=== PATIENT | female | born 1965 | race Caucasian/White ===

== ENCOUNTER 2016-10-28 18:05 | Emergency (ER) | payer MEDICARE, OTHER ==
[2016-10-28 22:59] LABS: ASCORBIC ACID (UR NOT ORDER) NEG (NEG); BILIRUBIN, URINE NEGATIVE (NEG); ER URINALYSIS TAT 0 Hrs 19 Mins; KETONE, URINE NEGATIVE (NEG); LEUKOCYTE ESTERASE(NOT OR MOD (NEG); NITRITE (URINE) NEG (NEG); WBC (NOT ORDERED) (RFLEX) 42 (0-5)
[2016-10-28 23:19] LABS: BASOPHILS 0.2 %; BASOPHILS ABSOLUTE 0.01 10/3/uL (0.0-0.16); EOSINOPHILS 1.9 %; ER CBC TAT 0 Hrs 07 Mins; HEMATOCRIT 36.9 % (36.0-48.0); HEMOGLOBIN 12.5 g/dL (12.0-16.0); IMMATURE GRANULOCYTES 0.2 %; IMMATURE GRANULOCYTES ABSOLUTE 0.01 10/3/uL (0.0-0.11); LYMPHOCYTES 47.9 %; LYMPHOCYTES ABSOLUTE 2.49 10/3/uL (0.67-4.30); MEAN CORPUS HGB CONC 33.9 g/dL (32.0-36.0); MEAN CORPUSCULAR HEMOGLOB 31.5 pg (26.0-34.0); MEAN CORPUSCULAR VOLUME 92.9 fL (80-100); MEAN PLATELET VOLUME 9.5 fL (9.2-13.0); MONOCYTES 6.3 %; MONOCYTES ABSOLUTE 0.33 10/3/uL (0.21-1.20); NEUTROPHILS 43.5 %; NEUTROPHILS ABSOLUTE 2.26 10/3/uL (2.02-8.40); PLATELET COUNT 261 10/3/uL (150-400); RBC DISTRIBUTION WIDTH 15.2 % (12.0-16.0); RED CELL COUNT 3.97 10/6/uL (4.0-5.6); WHITE BLOOD CELLS 5.2 10/3/uL (4.5-10.5)
[2016-10-28 23:22] LABS: MANUAL DIFF NO %
[2016-10-28 23:32] LABS: A/G RATIO 0.8 (0.7-1.9); ALBUMIN 3.2 G/DL (3.5-5.0); ALKALINE PHOSPHATASE 101 U/L (45-117); BUN (BLOOD UREA NITROGEN) 12 MG/DL (6-23); CALCIUM, SERUM 7.9 MG/DL (8.5-10.4); CHLORIDE, SERUM 99 MMOL/L (96-112); CO2 (CARBON DIOXIDE) 24 MMOL/L (24-34); CREATININE 0.89 MG/DL (0.55-1.02); GFR AFRICAN AMERICAN 86 ML/MIN (>=60); GFR NON AFRICAN AMERICAN 74 ML/MIN (>=60); POTASSIUM, SERUM 3.6 MMOL/L (3.5-5.3); SGPT(ALT) 29 U/L (5-65); SODIUM, SERUM 134 MMOL/L (135-148); TOTAL BILIRUBIN 0.4 MG/DL (0-1.2); TOTAL PROTEIN 7.2 G/DL (6.0-8.5)
[2016-10-28 23:35] LABS: GLUCOSE, SERUM 352 MG/DL (60-99); SGOT(AST) 27 U/L (5-40)
== END 2016-10-29 02:02 | disposition home or self-care (01) ==
LOC: ER 18:05
PROVIDERS: Emergency Medicine
DX: K52.9 Noninfective gastroenteritis and colitis, unspecified (principal); E11.9 Type 2 diabetes mellitus without complications; Z91.041 Radiographic dye allergy status
CPT/HCPCS: 74000; 80053; 81001; 83690; 84703; 85025; 87086; 87493; 87493-59; 99284

== ENCOUNTER 2016-11-05 12:09 | Emergency (ER) | payer MEDICARE, OTHER ==
[2016-11-05 11:38] LABS: BASOPHILS 0.2 %; BASOPHILS ABSOLUTE 0.01 10/3/uL (0.0-0.16); EOSINOPHILS 0.3 %; EOSINOPHILS ABSOLUTE 0.02 10/3/uL (0.0-0.53); HEMATOCRIT 38.6 % (36.0-48.0); HEMOGLOBIN 12.5 g/dL (12.0-16.0); IMMATURE GRANULOCYTES 0.2 %; IMMATURE GRANULOCYTES ABSOLUTE 0.01 10/3/uL (0.0-0.11); LYMPHOCYTES 24.4 %; LYMPHOCYTES ABSOLUTE 1.55 10/3/uL (0.67-4.30); MEAN CORPUS HGB CONC 32.4 g/dL (32.0-36.0); MEAN CORPUSCULAR HEMOGLOB 30.6 pg (26.0-34.0); MEAN CORPUSCULAR VOLUME 94.6 fL (80-100); MEAN PLATELET VOLUME 9.7 fL (9.2-13.0); MONOCYTES 6.6 %; MONOCYTES ABSOLUTE 0.42 10/3/uL (0.21-1.20); NEUTROPHILS 68.3 %; NEUTROPHILS ABSOLUTE 4.33 10/3/uL (2.02-8.40); PLATELET COUNT 281 10/3/uL (150-400); RBC DISTRIBUTION WIDTH 15.9 % (12.0-16.0); RED CELL COUNT 4.08 10/6/uL (4.0-5.6); WHITE BLOOD CELLS 6.3 10/3/uL (4.5-10.5)
[2016-11-05 11:39] LABS: MANUAL DIFF NO %
[2016-11-05 11:44] LABS: ASCORBIC ACID (UR NOT ORDER) NEG (NEG); BILIRUBIN, URINE NEGATIVE (NEG); ER URINALYSIS TAT 0 Hrs 09 Mins; KETONE, URINE NEGATIVE (NEG); LEUKOCYTE ESTERASE(NOT OR NEG (NEG); NITRITE (URINE) NEG (NEG); WBC (NOT ORDERED) (RFLEX) < 1 (0-5)
[2016-11-05 11:55] LABS: A/G RATIO 0.7 (0.7-1.9); ALBUMIN 3.1 G/DL (3.5-5.0); BUN (BLOOD UREA NITROGEN) 9 MG/DL (6-23); CHLORIDE, SERUM 101 MMOL/L (96-112); CO2 (CARBON DIOXIDE) 26 MMOL/L (24-34); CREATININE 0.89 MG/DL (0.55-1.02); GFR AFRICAN AMERICAN 86 ML/MIN (>=60); GFR NON AFRICAN AMERICAN 74 ML/MIN (>=60); GLOBULIN 4.3 G/DL (2.5-4.1); SGPT(ALT) 32 U/L (5-65); SODIUM, SERUM 135 MMOL/L (135-148); TOTAL BILIRUBIN 0.3 MG/DL (0-1.2); TOTAL PROTEIN 7.4 G/DL (6.0-8.5)
[2016-11-05 12:03] LABS: ALKALINE PHOSPHATASE 84 U/L (45-117); CALCIUM, SERUM 8.9 MG/DL (8.5-10.4); GLUCOSE, SERUM 352 MG/DL (60-99); POTASSIUM, SERUM 4.5 MMOL/L (3.5-5.3)
[2016-11-05 12:04] LABS: SGOT(AST) 36 U/L (5-40)
== END 2016-11-05 19:10 | disposition home or self-care (01) ==
LOC: ER 12:09
PROVIDERS: Hospitalist
DX: R10.11 Right upper quadrant pain (principal); E11.9 Type 2 diabetes mellitus without complications; F10.10 Alcohol abuse, uncomplicated; I10 Essential (primary) hypertension; Z91.041 Radiographic dye allergy status
CPT/HCPCS: 74176; 76705; 80053; 81001; 82962; 83690; 85025; 96374; 96375; 99285; J2405